=== PATIENT | female | born 1990 ===

== ENCOUNTER 2018-03-24 17:23 | Emergency (ER) | payer OTHER ==
[2018-03-24 17:42] VITALS: BP 115/73; PULSE 78; RESP 18; TEMP 98.2; O2SAT 99
--- NOTE | 2018-03-24 18:32 | RAD ---
Date of service: 03/24/2018 HISTORY: chest pain COMPARISON: No prior. TECHNIQUE: Chest PA and lateral FINDINGS: LUNGS: No active pulmonary disease. PLEURA: No significant pleural effusion identified. No pneumothorax apparent. CARDIOVASCULAR: No aortic atherosclerotic calcification present. Normal cardiac size. No pulmonary vascular congestion. OSSEOUS STRUCTURES: No significant abnormalities. VISUALIZED UPPER ABDOMEN: Normal. OTHER FINDINGS: None. IMPRESSION: No active disease.
--- NOTE | 2018-03-24 19:07 | ED PDOC ---
HPI: Chest Pain Time Seen by Provider: 03/24/18 17:52 Chief Complaint (Nursing): Breast Problem Chief Complaint (Provider): neck pain History Per: Patient History/Exam Limitations: no limitations Additional Complaint(s): 27 y/o female presents to ED with x2 day history of left sided neck pain that radiates to left shoulder and left chest wall. Patient reports the pain also radiates into her left arm. Denies associated weakness or chest pain. Past Medical History Reviewed: Historical Data, Nursing Documentation, Vital Signs Vital Signs: Last Vital Signs Temp 98.2 F 03/24/18 17:35 Pulse 78 03/24/18 17:35 Resp 18 03/24/18 17:35 BP 115/73 03/24/18 17:35 Pulse Ox 99 03/24/18 17:35 - Medical History PMH: No Chronic Diseases - Family History Family History: States: Unknown Family Hx - Home Medications Home Medications: Ambulatory Orders Medication Instructions Recorded RX: Ibuprofen [Motrin Tab] 600 mg PO TID PRN #15 tab 03/24/18 - Allergies Allergies/Adverse Reactions: Allergies Allergy/AdvReac Type Severity Reaction Status Date / Time No Known Allergies Allergy Verified 03/24/18 17:35 Review of Systems ROS Statement: Except As Marked, All Systems Reviewed And Found Negative Cardiovascular: Negative for: Chest Pain Musculoskeletal: Positive for: Neck Pain, Shoulder Pain (left), Arm Pain (left) Neurological: Negative for: Weakness Physical Exam - Reviewed Nursing Documentation Reviewed: Yes Vital Signs Reviewed: Yes - Physical Exam Appears: Positive for: Non-toxic, No Acute Distress Head Exam: Positive for: ATRAUMATIC, NORMOCEPHALIC Skin: Positive for: Normal Color, Warm, DRY Eye Exam: Positive for: EOMI, Normal appearance, PERRL Neck: Positive for: Normal (no midline tenderness), Painless ROM. Negative for: Decreased ROM Cardiovascular/Chest: Positive for: Regular Rate, Rhythm, Other (mild reproducible left chest wall tenderness in midaxillary line). Negative for: Murmur Respiratory: Positive for: Normal Breath Sounds. Negative for: Respiratory Distress Pulses-Radial (L): 2+ Pulses-Radial (R): 2+ Back: Positive for: Vertebral Tenderness (left paracervical tenderness; left upper trapezius tenderness) Extremity: Positive for: Normal ROM. Negative for: Pedal Edema, Deformity Neurologic/Psych: Positive for: Alert, Oriented, Other (5/5 strength to bilateral upper extremities; sensation intact). Negative for: Motor/Sensory Deficits - ECG O2 Sat by Pulse Oximetry: 99 (RA) Pulse Ox Interpretation: Normal Medical Decision Making Medical Decision Making: Time: 18:01 Initial Impression: neck pain Initial Plan: * Urine * CXR * Motrin 600 mg PO Time: 19:00 Urine negative. CXR shows NAPD. EKG is NSR at 67 with no acute ischemic changes Patient prachi be sent home with a Rx for motrin Pt. well appearing, neuro intact, no distress. Scribe Attestation: Documented by Jimmy Hart, acting as a scribe for Cecilia Ramirez PA-C Provider Scribe Attestation: All medical record entries made by the Scribe were at my direction and personally dictated by me. I have reviewed the chart and agree that the record accurately reflects my personal performance of the history, physical exam, medical decision making, and the department course for this patient. I have also personally directed, reviewed, and agree with the discharge instructions and disposition. Disposition - Clinical Impression Clinical Impression: Neck pain, Chest wall pain - Disposition Referrals: [facility] [Outside] Disposition: Routine/Home Disposition Time: 20:48 Condition: IMPROVED Prescriptions: RX: Ibuprofen [Motrin Tab] 600 mg PO TID PRN #15 tab PRN Reason: Pain, Moderate (4-7) Instructions: Costochondritis, Generalized Neck Pain (DC) Forms: [employer] (Argentine) Print Language: ECUADOREAN
== END 2018-03-24 19:10 | disposition home or self-care (01) ==
LOC: H.ER 17:23
DX: M54.2 Cervicalgia (principal); R07.89 Other chest pain

== ENCOUNTER 2018-08-03 06:15 | Day surgery (SDC) | payer SELFPAY ==
[2018-08-03 06:41] VITALS: BMI 27.5
--- NOTE | 2018-08-03 07:38 | CP.SDSHP ---
Same Day Surgery H & P - History Proposed Procedure: Left Breast Lumpectomy Pre-Op Diagnosis: Mass of left breast - Previous Medical/Surgical History Comments: Patient first noticed mass 8 months ago. Denies associated pain or nipple discharge. 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 Previous Surgical History: PSH: Lasik - Allergies Allergies: Allergies avocado Allergy (Verified 08/03/18 06:39) SWELLING swelling of the mouth - Physical Exam General Appearance: WDWN NAD AAOX3 GCS 15 moving all 4 extremities Vital Signs: Vital Signs 08/03/18 08/03/18 06:59 07:03 Temperature 99.2 F Pulse Rate 82 82 Respiratory 18 Rate Blood Pressure 121/71 O2 Sat by Pulse 98 Oximetry Mental Status: Alert & Oriented x3 Neuro: WNL Heart: WNL Lungs: WNL GI: WNL - {Optional Preform as Required} Breast: Other (palpable breast mass left side at 6 o'clock) Abdomen: WNL FORESTRY AID: WNL - Impression Impression: 28F w/ Left breast mass Pt. Evaluated Today:Candidate for Anesthesia & Procedure: Yes - Date & Time Date: 08/03/18 Time: 07:30 Short Stay Discharge - Short Stay Discharge Admitting Diagnosis/Reason for Visit: N63 Disposition: HOME/ ROUTINE Follow-up: Follow up in Dr. Patel clinic in 1-2 weeks. Can shower later today. Glue will fall off on its own. Do not scrub glue off. If fever > 100.4 take tylenol. if fever persists go to the Emergency department Additional Instructions (Diet, Activity): Can resume diet as tolerated
[2018-08-03] MEDS ORDERED: Succinylcholine Chloride 20 mg/ml Syr (5 ml) IV ONE (07:50)
[2018-08-03] MEDS ORDERED: ePHEDrine 50 mg/ml Inj ONE (07:50)
[2018-08-03] MEDS ORDERED: Midazolam 2 MG/2 ML VIAL ONE (07:50)
[2018-08-03] MEDS ORDERED: Propofol 10 mg/ml Inj (20 ML) ONE (07:50)
[2018-08-03] MEDS ORDERED: Lidocaine 4% (Laryng-O-Jet) Kit MM ONE (07:50)
[2018-08-03 07:52] LABS: BASO % 0.2 % (0.0-2.0); EOS # 0.1 K/uL (0.0-0.7); EOS % 1.6 % (0.0-4.0); HEMOGLOBIN 12.6 g/dL (12.0-16.0); LYMPH % 34.4 % (20.0-40.0); MEAN CELL VOLUME 92.6 fl (81.0-99.0); MEAN CORPUSCULAR HEMOGLOBIN 31.2 pg (27.0-31.0); MEAN CORPUSCULAR HGB CONC 33.7 g/dL (33.0-37.0); MEAN PLATELET VOLUME 8.9 fl (7.2-11.7); MONO # 0.8 K/uL (0.0-0.8); MONO % 9.8 % (0.0-10.0); NEUT # 4.7 K/uL (1.8-7.0); RBC 4.05 Mil/uL (3.80-5.20); RED CELL DISTRIBUTION WIDTH 12.7 % (11.5-14.5); WHITE BLOOD COUNT 8.6 K/uL (4.8-10.8)
[2018-08-03] MEDS ORDERED: Lactated Ringer's 1,000 ML IV ONE (08:04)
[2018-08-03] MEDS ORDERED: Dexamethasone 4 mg/1 ml ONE (08:38)
--- NOTE | 2018-08-03 09:01 | PCM.SURG1 ---
Surgeon's Initial Post Op Note - Surgeon's Notes Surgeon: Dr. Patel Route Contractor: Dr. Nazario PGY3, Dr. Vaughn PGY2 Type of Anesthesia: General Endo Anesthesia Administered By: Dr. Pina Pre-Operative Diagnosis: left breast mass Operative Findings: left breast mass Post-Operative Diagnosis: same Operation Performed: left breast lumpectomy Specimen/Specimens Removed: left breast mass Estimated Blood Loss: EBL {In ML}: 10 Blood Products Given: N/A Drains Used: No Drains Post-Op Condition: Good Date of Surgery/Procedure: 08/03/18 Time of Surgery/Procedure: 08:00
[2018-08-03] MEDS: HYDROmorphone 0.5 mg/0.5 ml ISec IVP PRN ×4 (09:08→09:38)
[2018-08-03] MEDS: Lactated Ringer's 1,000 ML IV SCH ×3 (09:38→10:30)
[2018-08-03 11:03] VITALS: RESP 18
[2018-08-03 11:49] VITALS: O2SAT 100
[2018-08-03 12:44] VITALS: BP 113/76; PULSE 82; TEMP 98.1
--- NOTE | 2018-08-05 06:22 | OP ---
PROCEDURE DATE: 08/03/2018 PROCEDURE: Left breast mass lumpectomy. PREOPERATIVE DIAGNOSIS: Left breast mass. POSTOPERATIVE DIAGNOSIS: Left breast mass. SURGEON: Stephanie Patel MD ASSISTANTS: Ismael Nazario DO, PGY-3, Trev Vaughn DO, PGY-2 ANESTHESIOLOGIST: Penny Pina MD ANESTHESIA USED: General anesthetic. INDICATIONS: Mrs. Reese is a very pleasant 28-year-old woman who presented to [facility] approximately 8 months ago with a complaint of left breast mass. Today, she arrived to the hospital for elective left breast mass lumpectomy. DESCRIPTION OF PROCEDURE: The patient was brought to the operating room where surgical safety checklist was performed. Preoperatively, 1 g of IV Ancef was administered. General anesthesia was induced. In the supine position, the patient's left breast was prepped and draped in the usual sterile fashion. A periareolar incision was made along the left breast using a #15 blade scalpel. Afterwards, electrocautery was used to divide the fascial planes. Once the left breast mass was palpated, electrocautery was used along the circumference of the mass to free it from its attachments. Once dissection progressed, a Tono was placed along the left breast mass and was superior-anteriorly retracted to aid in dissection of the mass using electrocautery. We were able to very nicely circumnavigate the left breast mass, and with the use of Bovie electrocautery, we were able to free the left breast mass from the regular breast tissue and minimizing blood loss. Once the left breast mass was removed, it was sent to Pathology. Afterwards, the area of dissection was thoroughly investigated. Hemostasis was achieved with electrocautery. There was no active bleeding noted. Area was thoroughly irrigated and suctioned. After further review of the area of dissection, hemostasis was achieved. Periareolar skin incision was closed using 4-0 Monocryl in a continuous fashion along the subcuticular planes. Dermabond was applied to skin incision site. There were no intraoperative complications and estimated blood loss was approximately 10 mL. All instrument and sponge counts were correct. The patient was extubated and transferred to PACU in stable condition. Ismael Nazario DO Stephanie Patel MD [facility] # [id number]
== END 2018-08-03 13:40 | disposition home or self-care (01) ==
LOC: H.OPSURG 06:15
PROVIDERS: ATTEND Specialist
DX: N63.0 Unspecified lump in unspecified breast (principal); N63.20 Unspecified lump in the left breast, unspecified quadrant
CPT/HCPCS: 19301; 36415; 85025; 88307; J0690; J1100; J1170; J1885; J2001; J2250; J2405; J2704; J3010; J7120